=== PATIENT | male | born 1950 | race Caucasian/White ===

== ENCOUNTER 2021-05-19 10:24 | Outpatient (CLI) | payer MEDICARE, SELFPAY ==
--- NOTE | 2021-05-19 10:43 | ECHO_ITS ---
Patient Info Name: Al Wiggins Age: 71 years : 1950 Gender: Male Ht: 71 in Wt: 280 lbs BSA: 2.57 m2 HR: 86 bpm BP: 154 / 80 mmHg Technical Quality: Fair Exam Date: 05/19/2021 10:51 AM Exam Location: [facility] [place] Patient Status: Outpatient Admit Date: 05/19/2021 Staff Ordering Physician: Marta Caraballo NP Foundry Worker: RED Attending Provider: Marta Caraballo NP Referring Physician: Ilya SUERO; Exam Type: CA echo doppler color flow Study Info Indications R55 - Syncope and collapse Complete two-dimensional, color flow and Doppler transthoracic echocardiogram is performed. Summary 1. Complete two-dimensional, color flow and Doppler transthoracic echocardiogram is performed. 2. Left ventricular chamber dimension is normal. 3. Left ventricular systolic function is normal, estimated at 60-65%. 4. There is moderately increased left ventricular wall thickness. 5. The left ventricular diastolic function is grade I diastolic dysfunction. 6. E/e' 9 is minimally elevated. 7. There is mild aortic valve sclerosis. 8. Mild pulmonary hypertension, estimated pulmonary arterial systolic pressure is 40 mmHg. Left Ventricle E/e' 9 is minimally elevated. Left ventricular chamber dimension is normal. Left ventricular systolic function is normal, estimated at 60-65%. There is moderately increased left ventricular wall thickness. The left ventricular diastolic function is grade I diastolic dysfunction. Right Ventricle Right ventricular chamber dimension is normal. Right ventricular systolic function is normal. Left Atria Left atrial chamber dimension is normal. Right Atria Right atrial chamber dimension is normal. Aortic Valve The aortic valve is trileaflet. There is mild aortic valve sclerosis. There is no aortic valve stenosis. There is no aortic valve regurgitation. Pulmonic Valve There is no pulmonic regurgitation. Mitral Valve There is no mitral valve stenosis. There is no mitral valve regurgitation. Tricuspid Valve There is no tricuspid valve regurgitation. Mild pulmonary hypertension, estimated pulmonary arterial systolic pressure is 40 mmHg. Pericardium/Pleural There is no pericardial effusion. Inferior Vena Cava Normal inferior vena cava with >50% collapse upon inspiration consistent with normal right atrial pressure, 5 mmHg. Aorta The aortic root size at the sinus of Valsalva is normal. Left Ventricular Outflow Tract Name Value Normal LVOT 2D LVOT Diameter 2.3 cm LVOT Doppler LVOT Peak Gradient 7 mmHg LVOT Mean Gradient 3 mmHg LVOT VTI 25 cm LVOT VTI/AV VTI Ratio 1.0 LVOT Stroke Volume 100 ml LVOT CO 20.3 l/min LVOT CI 7.9 l/min/m2 Pulmonic Valve Name Value Normal
--- NOTE | 2021-05-19 10:44 | ECG_ITS ---
Measurements Intervals [place] Rate: 72 P: 43 MN: 166 QRS: -17 QRSD: 114 T: 33 QT: 393 QTc: 432 Interpretive Statements SINUS RHYTHM INCOMPLETE RIGHT BUNDLE BRANCH BLOCK BORDERLINE ECG Electronically Signed On 05-19-2021 12:04:10 CDT by Mac Caputo D.O.
== END 2021-05-19 10:25 | disposition home or self-care (01) ==
LOC: ANHCARD 10:27
PROVIDERS: PCP Nurse Practitioner Family; Visit Provider Nurse Practitioner Family
DX: R55 Syncope and collapse (principal); I70.0 Atherosclerosis of aorta; I27.20 Pulmonary hypertension, unspecified; I45.10 Unspecified right bundle-branch block
CPT/HCPCS: 93005; 93306

== ENCOUNTER 2021-05-26 12:47 | Outpatient (CLI) | payer MEDICARE, SELFPAY ==
--- NOTE | ~2021-05-26 | US_ITS ---
EXAMINATION: US carotid duplex BI DATE: 05/26/2021 13:32 INDICATION: Syncope TECHNIQUE: Grayscale, color Doppler, and pulsed Doppler images of the cervical carotid arteries were obtained. The degree of vessel stenosis is placed in one of the following categories: normal, <50%, 5 0-69%, >=70% but less than near-occlusion, near-occlusion, or total occlusion. Note that percent sten osis relative to normal distal artery lumen diameter is indirectly measured from velocity measurement s as described by Lorenzo, et al. Radiology 2003; 229:340-346. COMPARISON: None. FINDINGS: RIGHT: The right common carotid artery (CCA) peak systolic velocity (PSV) is 131 cm/s. The right internal ca rotid artery (ICA) PSV is 77 cm/s. The right ICA end-diastolic velocity (EDV) is 27 cm/s. The right I CA/CCA PSV ratio is 0.6. Grayscale and color Doppler images yield an estimate of <50% diameter reduct ion from plaque in the ICA. The external carotid artery (ECA) PSV is 155 cm/s. There is antegrade mirella w in the right vertebral artery. Incidentally noted is a 1.5 cm wider than tall almost entirely cysti c nodule with smooth margins and with small echogenic focus with posterior comet tail artifact (TI-RA DS 1, benign, no FNA recommended). LEFT: The left CCA PSV is 133 cm/s. The left ICA PSV is 61 cm/s. The left ICA EDV is 24 cm/s. The left ICA/ CCA PSV ratio is 0.5. Grayscale and color Doppler images yield an estimate of <50% diameter reduction from plaque in the ICA. The ECA PSV is 184 cm/s. There is antegrade flow in the left vertebral arter y. IMPRESSION: 1. <50% stenosis in the right internal carotid artery. 2. <50% stenosis in the left internal carotid artery. Reviewed, dictated and finalized at location A.
== END 2021-05-26 12:48 | disposition home or self-care (01) ==
LOC: ANHIMG 12:49
PROVIDERS: PCP Nurse Practitioner Family; Visit Provider Nurse Practitioner Family
DX: I65.23 Occlusion and stenosis of bilateral carotid arteries (principal); R55 Syncope and collapse
CPT/HCPCS: 93880

== ENCOUNTER 2021-06-01 06:37 | Day surgery (SDC) | payer MEDICARE, SELFPAY ==
[2021-05-19 12:28] VITALS: BMI 39.0
--- NOTE | 2021-06-01 07:17 | PM.HPGS ---
History of Present Illness History of Present Illness Consent: Risks, benefits, and alternatives have been discussed and questions answered. Patient agrees to proceed with procedure. Chief complaint: neoplasm screening Narrative: Al Wiggins is a 71 year old male referred for colon cancer screening.His mother had colon cancer. Review of Systems Review of Systems: All systems reviewed & are unremarkable except as noted in HPI and below PMFSH Past Medical History Medical History Arthritis Cataract beginning Environmental allergies Essential (primary) hypertension GERD (gastroesophageal reflux disease) Hyperlipidemia Sleep apnea Surgical History Surgical History History of foot surgery Right foot fusion surgery 08/02/2018 Hx of colonoscopy no polyps Family History Family History Mother Hypertension Family history of osteoarthritis Family history of Parkinson's disease Carcinoma of colon Family history of arthritis Father Family history of kidney disease Social History Social History Smoking status: Never smoker Second hand tobacco smoke exposure: No Alcohol intake: never Substance use: never Substance use type: does not use Living arrangements: with family Gender identity (if verbalized by the patient): Male Spiritual care concerns: No Meds Home Medications and Allergies Home Medications Medication Instructions Recorded Confirmed Type aspirin 81 mg tablet,delayed 81 mg PO DAILY 10/20/19 06/01/21 History release cholecalciferol (vitamin D3) 25 1,000 unit PO DAILY 10/20/19 06/01/21 History mcg (1,000 unit) capsule guaifenesin 600 mg tablet, 600 mg PO DAILY 04/20/20 06/01/21 History extended release 12 hr loratadine 5 mg-pseudoephedrine ER 1 tablet PO DAILY 04/20/20 06/01/21 History 120 mg tablet,extended release,12hr atorvastatin 10 mg tablet 10 mg PO DAILY #90 tablet 04/26/21 06/01/21 Rx omega-3s 350 er-kbz-ual-other 1 cap PO BID cap 04/26/21 06/01/21 History [id number] oil 600 mg capsule lisinopril 30 mg tablet 30 mg PO DAILY #90 tablet 05/12/21 06/01/21 Rx Allergies Allergy/AdvReac Type Severity Reaction Status Date / Time No Known Allergies Allergy Verified 06/01/21 08:54 Exam Resp: Auscultation: clear to auscultation bilaterally Cardio: Rate: regular rate Rhythm: regular rhythm GI: GI Palp: Yes Soft to palpation and No Tenderness to palpation present (GI) Assessment and Plan Assessment and plan (1) Colon cancer screening: Code(s): Z12.11 - Encounter for screening for malignant neoplasm of colon Status: Acute Assessment and Plan: Colonoscopy with possible biopsy or polypectomy or cautery or injection of substances.
[2021-06-01 08:56] VITALS: BP 168/82; PULSE 82; RESP 18; TEMP 36.3; O2SAT 94; BMI 38.8
[2021-06-01] MEDS: LACTATED RINGERS 1,000 ML 150 ML IV CONT (09:08)
--- NOTE | 2021-06-01 09:16 | WPDANESEPPF ---
Anes - Initial Pre Proc Eval Procedure: Operation Date: 06/01/21 09:30 Proposed Procedures p Screening Colonoscopy - Pradip Patterson MD Date/Time: 06/01/21 09:16 Surgeon: Pradip Patterson MD Pre Op Diagnosis: neoplasm screening Patient Data Age: 71 Gender: M Height: 1.8 m Weight: 126.3 kg Last Vital Signs Temp 36.3 C L 06/01/21 08:56 Pulse 82 06/01/21 08:56 Resp 18 06/01/21 08:56 BP 168/82 H 06/01/21 08:56 Pulse Ox 94 06/01/21 08:56 Allergies Allergy/AdvReac Type Severity Reaction Status Date / Time No Known Allergies Allergy Verified 06/01/21 08:54 Home Medications Medication Instructions Recorded Confirmed Type aspirin 81 mg tablet,delayed 81 mg PO DAILY 10/20/19 06/01/21 History release cholecalciferol (vitamin D3) 25 1,000 unit PO DAILY 10/20/19 06/01/21 History mcg (1,000 unit) capsule guaifenesin 600 mg tablet, 600 mg PO DAILY 04/20/20 06/01/21 History extended release 12 hr loratadine 5 mg-pseudoephedrine ER 1 tablet PO DAILY 04/20/20 06/01/21 History 120 mg tablet,extended release,12hr atorvastatin 10 mg tablet 10 mg PO DAILY #90 tablet 04/26/21 06/01/21 Rx omega-3s 350 cr-hml-uen-other 1 cap PO BID cap 04/26/21 06/01/21 History [id number] oil 600 mg capsule lisinopril 30 mg tablet 30 mg PO DAILY #90 tablet 05/12/21 06/01/21 Rx Patient hx anesthesia problems: none Family hx anesthesia problems: none PMFSH Past Medical History Medical History Arthritis Cataract beginning Environmental allergies Essential (primary) hypertension GERD (gastroesophageal reflux disease) Hyperlipidemia Sleep apnea Surgical History Surgical History History of foot surgery Right foot fusion surgery 08/02/2018 Hx of colonoscopy no polyps Family History Family History Mother Hypertension Family history of osteoarthritis Family history of Parkinson's disease Carcinoma of colon Family history of arthritis Father Family history of kidney disease Social History Social History Smoking status: Never smoker Second hand tobacco smoke exposure: No Alcohol intake: never Substance use: never Substance use type: does not use Living arrangements: with family Gender identity (if verbalized by the patient): Male Spiritual care concerns: No Anes - Eval Final PreProcedure Day of Procedure 06/01/21 09:16 Patient weight: obese Heart: regular rate and rhythm Lungs: clear to auscultation Airway: Mallampati scale class II Neurological: alert and oriented Last oral intake: >/= 8 hours ASA classification: III Emergent: no Anesthetic plan: proceed Anesthesia type and monitoring: general GIVS and standard monitoring Informed Consent: The patient's anesthetic plan and its attendant risks and benefits were discussed with the patient/family/POA. Questions were solicited and answers provided to the satisfaction of the patient/family/POA.
[2021-06-01 09:51] VITALS: BP 113/70; PULSE 75; O2SAT 95
[2021-06-01 10:01] VITALS: BP 129/66; PULSE 72; O2SAT 96
[2021-06-01 10:11] VITALS: BP 134/71; PULSE 65; O2SAT 97
== END 2021-06-01 10:27 | disposition home or self-care (01) ==
PROVIDERS: PCP Nurse Practitioner Family; Visit Provider Internal Medicine Gastroenterology
PROC: 0DJD8ZZ Inspection of Lower Intestinal Tract, Via Natural or Artificial Opening Endoscopic (ICD-10-PCS; CPT 45378; principal; 2021-06-01 09:30)
DX: Z12.11 Encounter for screening for malignant neoplasm of colon (principal); K64.8 Other hemorrhoids; K57.30 Diverticulosis of large intestine without perforation or abscess without bleeding; Z80.0 Family history of malignant neoplasm of digestive organs; E78.5 Hyperlipidemia, unspecified; K21.9 Gastro-esophageal reflux disease without esophagitis; H26.9 Unspecified cataract; G47.30 Sleep apnea, unspecified; Z79.82 Long term (current) use of aspirin; E66.9 Obesity, unspecified; Z68.38 Body mass index [BMI] 38.0-38.9, adult
CPT/HCPCS: G0105; J2704; J7120

== ENCOUNTER 2022-03-15 08:42 | Emergency (ER) | payer MEDICARE, SELFPAY ==
[2022-03-15] VITALS (42 sets, daily range): BP systolic 97–129; BP diastolic 58–79; PULSE 55–75; RESP 9–23; TEMP 36.3; O2SAT 88–100
--- NOTE | 2022-03-15 08:52 | ECG_ITS ---
Measurements Intervals [place] Rate: 59 P: 24 TN: 186 QRS: -9 QRSD: 117 T: 22 QT: 433 QTc: 431 Interpretive Statements SINUS BRADYCARDIA INCOMPLETE RIGHT BUNDLE BRANCH BLOCK BORDERLINE ECG Electronically Signed On 03-15-2022 9:36:03 CDT by Mac Caputo D.O.
[2022-03-15 09:00] LABS: Basophils Percent Auto 0.7 % (0.2-1.2); Eosinophils Absolute Auto 0.1 K/mm3 (0-0.3); Hematocrit 45.9 % (42.0-52.0); Hemoglobin 15.4 g/dL (14.0-18.0); Immature Granulocyte Absolute 0.03 K/mm3 (0.00-0.031); Immature Granulocyte Percent A 0.7 % (0-0.5); Lymphocytes Absolute Auto 1.35 K/mm3 (0.9-3.2); Lymphocytes Percent Auto 33.3 % (18.3-44.2); Mean Corpuscular HGB Conc 33.6 g/dl (32-36); Mean Corpuscular Hemoglobin 30.1 pg (26-34); Mean Corpuscular Volume 89.8 fl (80-100); Mean Platelet Volume 9.6 fl (7.4-10.4); Monocytes Absolute Auto 0.7 K/mm3 (0.1-0.6); Monocytes Percent Auto 16.5 % (2.6-8.5); Neutrophils Absolute Auto 1.9 K/mm3 (1.3-6.7); Neutrophils Percent Auto 46.8 % (45.5-73.1); Platelet Count Result 227 k/mm3 (150-375); Red Blood Count 5.11 M/mm3 (4.6-6.20); Red Cell Distribution Width 12.7 % (11.5-14.5); White Blood Count 4.1 K/mm3 (4.5-10.0)
[2022-03-15 09:11] LABS: Alanine Aminotransferase 28 U/L (6-50); Alkaline Phosphatase 82 U/L (38-126); Anion Gap 7 mmol/L (8-16); Aspartate Amino Transferase 35 U/L (17-59); Bilirubin,Total 0.4 mg/dL (0.2-1.3); Blood Urea Nitrogen 19 mg/dL (9-20); Calcium 8.6 mg/dL (8.4-10.2); Carbon Dioxide 25 mmol/L (22-30); Chloride 102 mmol/L (98-107); Estimated CRCL calculation 73 ml/min; Estimated Glomerular Filt Rate > 60; Glucose 104 mg/dL (65-110); Potassium 4.7 mmol/L (3.4-5.0); Sodium 134 mmol/L (137-145)
[2022-03-15 10:17] LABS: Appearance Urine Clear (Clear); Bilirubin Urine Negative (Negative); Blood Urine Negative (Negative); Color Urine Yellow (Yellow); Glucose Urine UA Negative (Negative); Ketones Urine Negative (Negative); Leukocyte Esterase Ur Negative LEU/UL (Negative); Nitrate Urine Negative (Negative); Protein Urine Negative (Negative); Specific Grav Ur >= 1.030 (1.001-1.035); Urobilinogen Urine 0.2 mg/dL (<2.0); pH Urine 5.5 (5.0-9.0)
[2022-03-15] MEDS: SODIUM CHLORIDE 0.9% IV 1,000 ML 999 ML IV CONT (10:19)
[2022-03-15 10:30] LABS: Add Urine Microscopic? NO
--- NOTE | 2022-03-15 13:13 | ED.DIZZY ---
HPI - Dizziness General Chief Complaint: Dizziness Stated Complaint: dizziness Time Seen by Provider: 03/15/22 08:55 Source: patient and family Mode of arrival: ambulatory Limitations: no limitations History of Present Illness HPI Narrative: 71-year-old with a history of hypertension, hyperlipidemia, arthritis here with complaints of dizziness since this morning. Patient states that he woke up and use the restroom felt extremely dizzy he sat back on the bed checked his blood pressure and was found to be 82/42. After few minutes he again checked his pressure which was normal. Patient states he called his nurse practitioner who advised him to go to the ER. He presently denies any chest pain. No history of nausea, vomiting or abdominal pain. Patient states that he had a similar episode few weeks ago and at that time his doctor discontinued hydrochlorothiazide. MD elicited complaint: dizziness and lightheadedness Onset (ago): hour(s) (1) Timing: sudden onset Severity: moderate Description: lightheadedness Exacerbating factors: nothing Relieving factors: nothing Associated symptoms: denies other symptoms Related Data Home Medications Medication Instructions Recorded Confirmed aspirin 81 mg tablet,delayed 81 mg PO DAILY 10/20/19 10/25/21 release (Adult Low Dose Aspirin) cholecalciferol (vitamin D3) 25 1,000 unit PO DAILY 10/20/19 10/25/21 mcg (1,000 unit) capsule guaifenesin 600 mg tablet, 600 mg PO DAILY 04/20/20 10/25/21 extended release 12 hr (Mucinex) loratadine 5 mg-pseudoephedrine ER 1 tablet PO DAILY 04/20/20 10/25/21 120 mg tablet,extended release,12hr (Claritin-D 12 Hour) omega-3s 350 ze-gqe-pmt-other 1 cap PO BID 04/26/21 10/25/21 [id number] oil 600 mg capsule (Fish Oil) docusate sodium 100 mg capsule 100 mg PO DAILY 10/25/21 10/25/21 (Colace) Allergies Allergy/AdvReac Type Severity Reaction Status Date / Time No Known Allergies Allergy Verified 10/25/21 10:02 Review of Systems Review of Systems: All systems reviewed & are unremarkable except as noted in HPI and below Constitutional: Constitutional: Reports no additional constitutional complaints Eyes: Eyes: Reports no additional eye complaints ENT: Reports system reviewed and no additional complaints, except as documented Cardiovascular: Cardiovascular: Reports no additional cardiovascular complaints Respiratory: Respiratory: Reports no additional respiratory complaints Gastrointestinal: Gastrointestinal: Reports no additional gastrointestinal complaints Musculoskeletal: Musculoskeletal: Reports no additional musculoskeletal complaints Neurologic: Reports system reviewed and no additional complaints, except as documented Endocrine: Endocrine: Reports no additional endocrine complaints Hematologic/Lymphatic: Hematologic/Lymphatic: Reports no additional hematologic/lymphatic complaints PMFSH Past Medical History Medical History Arthritis Cataract beginning Environmental allergies Essential (primary) hypertension GERD (gastroesophageal reflux disease) Hyperlipidemia Sleep apnea Surgical History Surgical History History of foot surgery Right foot fusion surgery 08/02/2018 Hx of colonoscopy no polyps Family History Family History Mother Hypertension Family history of osteoarthritis Family history of Parkinson's disease Carcinoma of colon Family history of arthritis Father Family history of kidney disease Social History Social History Smoking status: Never smoker Second hand tobacco smoke exposure: No Alcohol intake: never Substance use: never Substance use type: does not use Gender identity (if verbalized by the patient): Male Spiritual care concerns: No Exam Narrative:
== END 2022-03-15 13:48 | disposition home or self-care (01) ==
PROVIDERS: Emergency Provider Family Medicine; PCP Nurse Practitioner Family
DX: I95.1 Orthostatic hypotension (principal); E78.5 Hyperlipidemia, unspecified; I10 Essential (primary) hypertension
CPT/HCPCS: 36415; 80053; 81003; 85025; 93005; 96360; 99283; J7030

== ENCOUNTER 2022-03-28 11:58 | Emergency (ER) | payer MEDICARE, SELFPAY ==
--- NOTE | ~2022-03-28 | XR_ITS ---
XR chest 2V 03/28/2022 13:24 Indication: Cough Procedure: 2 view chest Comparison: No prior studies for comparison. Findings: There is a nodular density in the left lower thorax. Heart size normal. There is atheroscle rosis and ectasia of the aorta. No significant effusion, edema or pneumothorax. There is advanced ost eoarthritis of the right glenohumeral joint with adjacent loose bodies. Impression: 1: Nodular radiodensity left lower thorax which may represent superimposed confluence of structures, although a parenchymal nodule is not excluded. Recommend correlation with CT chest. Reviewed, dictated and finalized at location B. Impression: 1: Nodular radiodensity left lower thorax which may represent superimposed conf luence of structures, although a parenchymal nodule is not excluded. Recommend correlation with CT chest.
--- NOTE | ~2022-03-28 | CT_ITS ---
EXAMINATION: CT abdomen pelvis wo con DATE: 03/28/2022 13:13 INDICATION: Abdominal cramping, diarrhea TECHNIQUE: Computed tomography (CT) of the abdomen and pelvis was performed without intravenous contr ast. Automated exposure control and iterative reconstruction technique were employed. Exam dose: 145 2.25 mGy-cm total exam DLP. COMPARISON: None. FINDINGS: Normal heart size. No pericardial or pleural effusion. Coronary artery calcification. 4.5 cm hepatic dome cyst. The liver is otherwise unremarkable. Normal splenic size. The gallbladder is present. No bile duct or pancreatic duct dilatation. No pancr eatic mass lesion or calcification. Normal morphology of the adrenal glands. 8 cm and 2.2 cm right renal cyst. 2.8 cm left renal cyst. Possible small left renal cortical exophyti c cyst. Examination is limited due to lack of iodinated intravenous contrast material. No urinary tract calculus or hydroureteronephrosis is detected. The urinary bladder is unremarkable. Bilateral fat-containing inguinal hernias, small on the right, larger on the left. Moderate prostate enlargement. Normal appendix. There are multiple diverticula of the sigmoid colon; no CT evidence of diverticulitis. No bowel obstr uction or intraperitoneal free air. There is atherosclerotic calcification of the abdominal aorta and at the origin the celiac and partic ularly superior mesenteric arteries in addition to left renal artery. No abdominal aortic aneurysm. N o intraperitoneal or retroperitoneal or pelvic mass lesion or adenopathy or ascites is noted. Small fat-containing umbilical hernia. 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 Multilevel degenerative disc disease of the lumbar and lumbosacral spine. Degenerative change at the hip joints. No suspicious osteolytic or osteoblast ic lesions are identified. IMPRESSION: Hepatic and bilateral renal cysts Normal appendix Diverticulosis of the colon; no CT evidence of diverticulitis Reviewed, dictated and finalized at Location A. Reviewed, dictated and finalized at location A.
[2022-03-28 12:12] VITALS: BP 130/70; PULSE 80; RESP 16; TEMP 36.2; O2SAT 98
--- NOTE | 2022-03-28 12:31 | ED.NAVMDI ---
HPI - Nausea/Vomiting/Diarrhea General Chief complaint: Nausea/Vomiting/Diarrhea Stated complaint: diarrhea x 1-2 weeks Time Seen by Provider: 03/28/22 12:29 History of Present Illness HPI Narrative: The patient is a 71-year-old male with a history of hypertension, hyperlipidemia, presenting to the emergency department for evaluation abdominal cramping, diarrhea, cough. Patient states that he has had profuse watery diarrhea over the past week, worsening today. Patient reports 3 episodes of explosive diarrhea without mucus or blood present. Patient reports mild abdominal cramping without radiation to the back or upper abdomen. He denies fever, chills, nausea or vomiting. Patient states that he was exposed to COVID 2 weeks ago with a granddaughter who tested positive. Patient states he initially had cough cold symptoms with congestion, rhinorrhea, sore throat, and cough. Patient has not had any confirmatory testing. He states that his symptoms began greater than 10 days ago. Patient states he mostly feels well from that standpoint, reports he has a lingering cough but denies any chest pain or shortness of breath. He denies leg swelling or calf pain. He denies any hemoptysis. Patient denies any focal weakness or numbness. He has been able to tolerate oral intake. He denies recent travel or recent food indiscretions. No current or recent antibiotic use. Patient denies history of colitis or diverticulitis. He denies dysuria or hematuria. Related Data Home Medications Medication Instructions Recorded Confirmed aspirin 81 mg tablet,delayed 81 mg PO DAILY 10/20/19 10/25/21 release (Adult Low Dose Aspirin) cholecalciferol (vitamin D3) 25 1,000 unit PO DAILY 10/20/19 10/25/21 mcg (1,000 unit) capsule guaifenesin 600 mg tablet, 600 mg PO DAILY 04/20/20 10/25/21 extended release 12 hr (Mucinex) loratadine 5 mg-pseudoephedrine ER 1 tablet PO DAILY 04/20/20 10/25/21 120 mg tablet,extended release,12hr (Claritin-D 12 Hour) omega-3s 350 ap-szq-qot-other 1 cap PO BID 04/26/21 10/25/21 [id number] oil 600 mg capsule (Fish Oil) docusate sodium 100 mg capsule 100 mg PO DAILY 10/25/21 10/25/21 (Colace) Allergies Allergy/AdvReac Type Severity Reaction Status Date / Time No Known Allergies Allergy Verified 10/25/21 10:02 Review of Systems Review of Systems: CONSTITUTIONAL: Denies fever, chills, or sweats. EYES: Denies visual changes, redness, or discharge. ENT: Denies current rhinorrhea, congestion, sore throat, or otalgia. CARDIOVASCULAR: Denies chest pain, palpitations, or edema. RESPIRATORY: Reports cough without dyspnea GASTROINTESTINAL: Reports abdominal cramping and diarrhea, denies nausea or vomiting GENITOURINARY: Denies dysuria or hematuria. SKIN: Denies rash or itching. MUSCULOSKELETAL: Denies back pain, joint pain, or myalgia. NEUROLOGIC: Denies headache, numbness, or weakness. P PMFSH Past Medical History Medical History Arthritis Cataract beginning Environmental allergies Essential (primary) hypertension GERD (gastroesophageal reflux disease) Hyperlipidemia Sleep apnea Surgical History Surgical History History of foot surgery Right foot fusion surgery 08/02/2018 Hx of colonoscopy no polyps Family History Family History Mother Hypertension Family history of osteoarthritis Family history of Parkinson's disease Carcinoma of colon Family history of arthritis Father Family history of kidney disease Social History Social History Smoking status: Never smoker Second hand tobacco smoke exposure: No Alcohol intake: never Substance use: never Substance use type: does not use Gender identity (if verbalized by the patient): Male Spiritual care concerns: No
[2022-03-28 13:05] LABS: Basophils Absolute Auto 0.1 K/mm3 (0.0-0.1); Basophils Percent Auto 1.1 % (0.2-1.2); Eosinophils Absolute Auto 0.1 K/mm3 (0-0.3); Eosinophils Percent Auto 1.9 % (0-4.4); Hematocrit 44.1 % (42.0-52.0); Hemoglobin 14.6 g/dL (14.0-18.0); Immature Granulocyte Absolute 0.05 K/mm3 (0.00-0.031); Immature Granulocyte Percent A 0.7 % (0-0.5); Lymphocytes Absolute Auto 1.82 K/mm3 (0.9-3.2); Lymphocytes Percent Auto 24.5 % (18.3-44.2); Mean Corpuscular HGB Conc 33.1 g/dl (32-36); Mean Corpuscular Hemoglobin 29.6 pg (26-34); Mean Corpuscular Volume 89.3 fl (80-100); Monocytes Absolute Auto 0.9 K/mm3 (0.1-0.6); Monocytes Percent Auto 11.7 % (2.6-8.5); Neutrophils Absolute Auto 4.5 K/mm3 (1.3-6.7); Neutrophils Percent Auto 60.1 % (45.5-73.1); Platelet Count Result 312 k/mm3 (150-375); Red Blood Count 4.94 M/mm3 (4.6-6.20); Red Cell Distribution Width 13.5 % (11.5-14.5); White Blood Count 7.4 K/mm3 (4.5-10.0)
--- NOTE | 2022-03-28 13:10 | PC.NURSE ---
Patient in radiology
[2022-03-28 13:16] LABS: Alanine Aminotransferase 28 U/L (6-50); Alkaline Phosphatase 87 U/L (38-126); Anion Gap 5 mmol/L (8-16); Aspartate Amino Transferase 31 U/L (17-59); Bilirubin,Total 0.4 mg/dL (0.2-1.3); Blood Urea Nitrogen 18 mg/dL (9-20); Calcium 8.9 mg/dL (8.4-10.2); Carbon Dioxide 24 mmol/L (22-30); Chloride 109 mmol/L (98-107); Estimated CRCL calculation 73 ml/min; Estimated Glomerular Filt Rate > 60; Glucose 100 mg/dL (65-110); Lipase 58 U/L (23-300); Potassium 4.6 mmol/L (3.4-5.0); Sodium 138 mmol/L (137-145)
--- NOTE | 2022-03-28 13:19 | PC.NURSE ---
Patient to radiology again
[2022-03-28 13:28] VITALS: BP 108/64; BP 115/66; BP 118/67; PULSE 66; PULSE 75; PULSE 78
[2022-03-28] MEDS: SODIUM CHLORIDE 0.9% IV 1,000 ML 999 ML IV CONT (13:31)
[2022-03-28 14:29] LABS: SARS-CoV-2 RNA PCR Positive
== END 2022-03-28 14:53 | disposition home or self-care (01) ==
PROVIDERS: Emergency Medicine; Emergency Provider Emergency Medicine; PCP Family Medicine
DX: U07.1 COVID-19 (principal); R19.7 Diarrhea, unspecified; I10 Essential (primary) hypertension; E78.5 Hyperlipidemia, unspecified; K21.9 Gastro-esophageal reflux disease without esophagitis; M19.90 Unspecified osteoarthritis, unspecified site; G47.30 Sleep apnea, unspecified; Z79.82 Long term (current) use of aspirin
CPT/HCPCS: 36415; 71046; 74176; 80053; 83690; 85025; 96360; 99285; C9803; J7030; U0003; U0005

== ENCOUNTER 2022-05-14 17:42 | Emergency (ER) | payer MEDICARE, SELFPAY ==
--- NOTE | 2022-05-14 17:43 | ED.WOUNDLAC ---
HPI - Wound/Laceration General Chief Complaint: Wound/Laceration Stated Complaint: Right foot puncture wound Time Seen by Provider: 05/14/22 17:43 Source: patient Mode of arrival: ambulatory Limitations: no limitations History of Present Illness HPI narrative: Mr. Wiggins is a 72-year-old male patient presenting to the clinic today with complaints of a puncture wound to his right foot. He reports that he was out in the garden today in slippers and stepped on a omar nail. States his tetanus is up-to-date. Has right foot redness and swelling. Denies any fever or chills. Related Data Home Medications Medication Instructions Recorded Confirmed aspirin 81 mg tablet,delayed 81 mg PO DAILY 10/20/19 05/14/22 release (Adult Low Dose Aspirin) cholecalciferol (vitamin D3) 25 1,000 unit PO DAILY 10/20/19 05/14/22 mcg (1,000 unit) capsule omega-3s 350 lx-ana-xya-other 1 cap PO BID 04/26/21 05/14/22 [id number] oil 600 mg capsule (Fish Oil) Allergies Allergy/AdvReac Type Severity Reaction Status Date / Time No Known Allergies Allergy Verified 05/14/22 17:45 Review of Systems Review of Systems: Pertinent positives per HPI. Patient denies any fever, chills, rash, headache, visual changes, dizziness, cough, runny nose, sore throat, shortness of breath, chest pain, palpitations, nausea, vomiting, diarrhea, constipation, abdominal pain, or any urinary issues. PMFSH Past Medical History Medical History Arthritis Cataract beginning Environmental allergies Essential (primary) hypertension GERD (gastroesophageal reflux disease) Hyperlipidemia Sleep apnea Surgical History Surgical History History of foot surgery Right foot fusion surgery 08/02/2018 Hx of colonoscopy no polyps Family History Family History Mother Hypertension Family history of osteoarthritis Family history of Parkinson's disease Carcinoma of colon Family history of arthritis Father Family history of kidney disease Social History Social History Smoking status: Never smoker Second hand tobacco smoke exposure: No Alcohol intake: never Substance use: never Substance use type: does not use Gender identity (if verbalized by the patient): Male Spiritual care concerns: No Comments At the time of my signature, I reviewed and agree with the nursing past medical, surgical, social, and family history. There is no relevant family history pertinent to the patient complaint. Exam Narrative: General: Well-developed, obese, in no apparent distress Head: Normocephalic, atraumatic. Cardio: Regular rate and rhythm, s1 and s2 normal, no murmur appreciated. Resp: Clear to auscultation bilaterally, no rhonchi, rales, wheezing or rubs. Integumentary: [employer], warm, and dry, small puncture wound to the right midfoot, localized tenderness to palpation over the puncture wound site, moderate redness, erythremia, and swelling to the right foot when compared to the left foot, no discharge coming from the wound, no streaking noted, no rashes. Course Course Emergency Course: Portions of this record may have been created with voice recognition software. Level of Care: Express Care Visit Vital Signs Vital signs: Vital signs reviewed MDM - Wound/Laceration MDM Narrative Medical decision making narrative: At the time of visit patient was resting comfortably on the exam table. He has a small puncture wound to the right distal midfoot. He has erythremia, redness, and swelling to the right when compared to the left foot. We will give him a course of cephalexin and his tetanus shot is up-to-date per our records. Supportive measures were discussed with the patient he voiced understanding of dischar
[2022-05-14 17:52] VITALS: BP 163/76; PULSE 85; RESP 16; TEMP 36.8; O2SAT 100
== END 2022-05-14 18:08 | disposition home or self-care (01) ==
LOC: EXPCOLL 17:46
PROVIDERS: Emergency Provider Nurse Practitioner Family; PCP Nurse Practitioner Family
DX: S91.331A Puncture wound without foreign body, right foot, initial encounter (principal); L08.9 Local infection of the skin and subcutaneous tissue, unspecified; W45.0XXA Nail entering through skin, initial encounter; M19.90 Unspecified osteoarthritis, unspecified site; I10 Essential (primary) hypertension; K21.9 Gastro-esophageal reflux disease without esophagitis; E78.5 Hyperlipidemia, unspecified; G47.30 Sleep apnea, unspecified; Z79.82 Long term (current) use of aspirin
CPT/HCPCS: 99212; 99213; G0463

== ENCOUNTER 2022-10-26 09:55 | Outpatient (CLI) | payer MEDICARE, SELFPAY ==
[2022-10-26 11:05] LABS: Kit Draw Collected
== END 2022-10-26 09:56 | disposition home or self-care (01) ==
LOC: ANHGOSHLAB 09:58
PROVIDERS: PCP Family Medicine; Visit Provider Nurse Practitioner Family
DX: E78.5 Hyperlipidemia, unspecified (principal); I10 Essential (primary) hypertension
CPT/HCPCS: 36415

== ENCOUNTER 2022-11-03 15:08 | Outpatient (CLI) | payer MEDICARE, SELFPAY ==
[2022-11-03 15:54] LABS: Anion Gap 5 mmol/L (8-16); Blood Urea Nitrogen 21 mg/dL (9-20); Calcium 8.9 mg/dL (8.4-10.2); Carbon Dioxide 28 mmol/L (22-30); Chloride 101 mmol/L (98-107); Estimated Glomerular Filt Rate > 60; Glucose 90 mg/dL (65-110); Potassium 4.6 mmol/L (3.4-5.0); Sodium 134 mmol/L (137-145)
== END 2022-11-03 15:09 | disposition home or self-care (01) ==
PROVIDERS: PCP Family Medicine; Visit Provider Nurse Practitioner Family
DX: E87.5 Hyperkalemia (principal)
CPT/HCPCS: 36415; 80048

== ENCOUNTER 2023-05-15 10:42 | Outpatient (CLI) | payer MEDICARE, SELFPAY ==
[2023-05-15 19:17] LABS: Basophils Absolute Auto 0.1 K/mm3 (0.0-0.1); Eosinophils Absolute Auto 0.2 K/mm3 (0-0.3); Eosinophils Percent Auto 2.4 % (0-4.4); Hematocrit 48.6 % (42.0-52.0); Hemoglobin 16.2 g/dL (14.0-18.0); Immature Granulocyte Absolute 0.03 K/mm3 (0.00-0.031); Immature Granulocyte Percent A 0.5 % (0-0.5); Lymphocytes Absolute Auto 1.58 K/mm3 (0.9-3.2); Lymphocytes Percent Auto 25.1 % (18.3-44.2); Mean Corpuscular HGB Conc 33.3 g/dl (32-36); Mean Corpuscular Hemoglobin 30.3 pg (26-34); Mean Platelet Volume 10.2 fl (7.4-10.4); Monocytes Absolute Auto 0.6 K/mm3 (0.1-0.6); Monocytes Percent Auto 9.8 % (2.6-8.5); Neutrophils Absolute Auto 3.9 K/mm3 (1.3-6.7); Neutrophils Percent Auto 61.2 % (45.5-73.1); Platelet Count Result 279 k/mm3 (150-375); Red Blood Count 5.34 M/mm3 (4.6-6.20); Red Cell Distribution Width 12.9 % (11.5-14.5); White Blood Count 6.3 K/mm3 (4.5-10.0)
[2023-05-16 00:38] LABS: Alanine Aminotransferase 24 U/L (6-50); Albumin Level 4.4 g/dL (3.5-5.1); Alkaline Phosphatase 92 U/L (38-126); Anion Gap 9 mmol/L (8-16); Aspartate Amino Transferase 42 U/L (17-59); Bilirubin,Total 0.6 mg/dL (0.2-1.3); Blood Urea Nitrogen 19 mg/dL (9-20); Calcium 9.1 mg/dL (8.4-10.2); Carbon Dioxide 24 mmol/L (22-30); Chloride 104 mmol/L (98-107); Cholesterol 148 mg/dL (0-200); Estimated Glomerular Filt Rate 59; Glucose 96 mg/dL (65-110); HDL Direct 30 mg/dL; Potassium 4.4 mmol/L (3.4-5.0); Sodium 137 mmol/L (137-145); Triglycerides 127 mg/dL (<150)
[2023-05-16 00:49] LABS: LDL Cholesterol Direct 76 mg/dL
[2023-05-19 13:07] LABS: Vitamin D 1,25 (OH)2 Total 40 pg/mL (18-72); Vitamin D2 1,25 (OH)2 <8 pg/mL; Vitamin D3 1,25 (OH)2 40 pg/mL
== END 2023-05-15 10:43 | disposition home or self-care (01) ==
LOC: ANHGOSHLAB 10:45
PROVIDERS: PCP Family Medicine; Visit Provider Nurse Practitioner Family
DX: E55.9 Vitamin D deficiency, unspecified (principal); E78.5 Hyperlipidemia, unspecified; G47.30 Sleep apnea, unspecified; N18.30 Chronic kidney disease, stage 3 unspecified; E87.5 Hyperkalemia
CPT/HCPCS: 36415; 80053; 80061; 82652; 85025

== ENCOUNTER 2023-11-20 10:50 | Outpatient (CLI) | payer MEDICARE, SELFPAY ==
[2023-11-20 14:19] LABS: Alanine Aminotransferase 21 U/L (6-50); Albumin Level 4.4 g/dL (3.5-5.1); Alkaline Phosphatase 99 U/L (38-126); Anion Gap 6 mmol/L (8-16); Aspartate Amino Transferase 47 U/L (17-59); Basophils Absolute Auto 0.1 K/mm3 (0.0-0.1); Basophils Percent Auto 1.5 % (0.2-1.2); Bilirubin,Total 0.7 mg/dL (0.2-1.3); Blood Urea Nitrogen 19 mg/dL (9-20); Calcium 9.6 mg/dL (8.4-10.2); Carbon Dioxide 24 mmol/L (22-30); Chloride 105 mmol/L (98-107); Cholesterol 150 mg/dL (0-200); Eosinophils Absolute Auto 0.2 K/mm3 (0-0.3); Eosinophils Percent Auto 3.6 % (0-4.4); Estimated Glomerular Filt Rate 54; Glucose 109 mg/dL (65-110); HDL Direct 32 mg/dL; Hematocrit 50.5 % (42.0-52.0); Hemoglobin 16.7 g/dL (14.0-18.0); Immature Granulocyte Absolute 0.04 K/mm3 (0.00-0.031); Immature Granulocyte Percent A 0.7 % (0-0.5); Lymphocytes Absolute Auto 1.54 K/mm3 (0.9-3.2); Lymphocytes Percent Auto 28.1 % (18.3-44.2); Mean Corpuscular HGB Conc 33.1 g/dl (32-36); Mean Corpuscular Volume 90.7 fl (80-100); Mean Platelet Volume 10.2 fl (7.4-10.4); Monocytes Absolute Auto 0.6 K/mm3 (0.1-0.6); Monocytes Percent Auto 11.5 % (2.6-8.5); Neutrophils Percent Auto 54.6 % (45.5-73.1); Platelet Count Result 300 k/mm3 (150-375); Potassium 4.8 mmol/L (3.4-5.0); Red Blood Count 5.57 M/mm3 (4.6-6.20); Red Cell Distribution Width 12.9 % (11.5-14.5); Sodium 135 mmol/L (137-145); Triglycerides 98 mg/dL (<150); White Blood Count 5.5 K/mm3 (4.5-10.0)
[2023-11-20 14:31] LABS: LDL Cholesterol Direct 83 mg/dL
[2023-11-23 14:27] LABS: Vitamin D 1,25 (OH)2 Total 30 pg/mL (18-72); Vitamin D2 1,25 (OH)2 <8 pg/mL; Vitamin D3 1,25 (OH)2 30 pg/mL
[2023-11-23 15:02] LABS: PSA, Free 0.91 ng/mL; PSA, Total 6.3 ng/mL (<=4.0); Percent Free Prostate Spec Ag 14 % (>25)
== END 2023-11-20 10:51 | disposition home or self-care (01) ==
PROVIDERS: PCP Family Medicine; Visit Provider Nurse Practitioner Family
DX: Z12.5 Encounter for screening for malignant neoplasm of prostate (principal); E55.9 Vitamin D deficiency, unspecified; I10 Essential (primary) hypertension
CPT/HCPCS: 36415; 80053; 80061; 82652; 84153; 84154; 85025; G0103

== ENCOUNTER 2023-12-25 10:19 | Outpatient (CLI) | payer MEDICARE, SELFPAY ==
[2023-12-25 11:37] LABS: Prothrombin Time 13.2 Seconds (11.1-14.7)
[2023-12-25 11:38] LABS: Partial Thromboplastin Time 33.2 SECONDS (22.3-36.8)
== END 2023-12-25 10:20 | disposition home or self-care (01) ==
LOC: ANHSURGERY 10:23
PROVIDERS: Anesthesiology; PCP Family Medicine; Visit Provider Urology
DX: Z01.818 Encounter for other preprocedural examination (principal); R97.20 Elevated prostate specific antigen [PSA]; N18.30 Chronic kidney disease, stage 3 unspecified
CPT/HCPCS: 36415; 85610; 85730; 87086

== ENCOUNTER 2024-01-01 00:34 | Day surgery (SDC) | payer MEDICARE, SELFPAY ==
[2023-12-21 15:23] VITALS: BMI 39.0
--- NOTE | 2023-12-21 15:44 | PC.NURSE ---
Report to the Outpatient Waiting Room, entrance under the green pavilion located off [facility], at time __6:30AM on date __01/01/24 . Planned Procedure Time: __8:30AM . Time changes happen often and if your time is changed the preop area will call you the afternoon before. - You and your visitor will be asked to self-screen and do not enter if you have any COVID symptoms. - A mask is optional within the hospital at this time. Patients may have clear liquids (water, carbonated beverages, clear teas, apple juice) until 3 hours prior to surgery with a maximum of 20 ounces. - No food from midnight until time of surgery. Take the following medications with a SIP of water the morning of surgery: ___DOXAZOSIN DO NOT STOP ANY OF YOUR OTHER PRESCRIPTION MEDICATIONS PRIOR TO SURGERY ?EXCEPT THE FOLLOWING Medications to discontinue per physician ___HOLD ASPIRIN 7 DAYS PRE-OP PER DR HARDING- LAS DOSE- 01/01/24 HOLD ALL VITAMINS/SUPPLEMENTS 3 DAYS PRE-OP PER ANESTHESIA- LASY DOSE 12/28/23. Please no make-up, nail micronesian, hairspray, perfume, deodorant, or body powder the day of surgery. No jewelry (including any body piercings) or valuables the day of surgery, leave them at home. Please take a shower or bath the night before, or the morning of, surgery with an antibacterial soap. Wear comfortable, loose fitting clothing. - Jewelry must be removed prior to entering the operating room. Rings and piercings that are not removed may be cut off. - The hospital will not accept responsibility for valuables. - Please leave all valuables, including medications, at home the day of surgery. If you are going home after surgery, a licensed patrol driver must drive you home. - NO public transportation without another adult if you receive anesthesia. - We recommend that an adult stay with you for 24 hours following discharge. - We also recommend that you do not drive, make important decision, drink alcoholic beverages, or take any drugs that were not prescribed by your health care provider for at least 24 hours after your discharge time. Follow any additional instructions given to you from your surgeon. If you or anyone in your household have experienced Covid symptoms in the past week, please notify your surgeon or the nurse liaison at the phone number below for possible testing. Telephone instructions given to ____PATIENT and asked if any additional questions and then verbalized understanding. Patient advised to call surgeon office or pre surgery nurse liaison [phone] if any additional questions.
--- NOTE | 2023-12-31 12:57 | WPDANESEPPF ---
Anes - Initial Pre Proc Eval Procedure: Operation Date: 01/01/24 08:30 Proposed Procedures p Trans Rectal Ultrasound Fusion Guided Prostate Biopsy - William Haile MD Date/Time: 12/31/23 12:57 Surgeon: William Haile MD Pre Op Diagnosis: Elev PSA Patient Data Age: 73 Gender: M Height: 1.8 m Weight: 127 kg Allergies Allergy/AdvReac Type Severity Reaction Status Date / Time No Known Allergies Allergy Verified 12/21/23 15:16 Home Medications Medication Instructions Recorded Confirmed Type aspirin 81 mg tablet,delayed 81 mg PO DAILY 10/20/19 12/21/23 History release (Adult Low Dose Aspirin) cholecalciferol (vitamin D3) 25 1,000 unit PO DAILY 10/20/19 12/21/23 History mcg (1,000 unit) capsule omega-3s 350 ld-jgs-uco-other 1 cap PO BID 04/26/21 12/21/23 History [id number] oil 600 mg capsule (Fish Oil) melatonin 10 mg capsule 10 mg PO QHS 10/26/22 12/21/23 History cannabidiol 100 mg/mL oral solution 60 mg PO DAILY 05/15/23 12/21/23 History atorvastatin 10 mg tablet See Rx Instructions .Route 10/17/23 12/21/23 Rx .COMPLEX #90 tabs doxazosin 4 mg tablet 4 mg PO QAM 12/21/23 12/21/23 History lisinopril 10 mg tablet 10 mg PO HS 12/21/23 12/21/23 History Patient hx anesthesia problems: none Family hx anesthesia problems: none Results Review: All pre-operative results and documents have been reviewed as part of the pre-operative evaluation. [facility] Past Medical History Medical History Arthritis Cataract beginning Environmental allergies Essential (primary) hypertension GERD (gastroesophageal reflux disease) Hyperlipidemia Sleep apnea Vitamin D deficiency Surgical History Surgical History History of foot surgery Right foot fusion surgery 08/02/2018 Hx of colonoscopy no polyps Family History Family History Mother Hypertension Family history of osteoarthritis Family history of Parkinson's disease Carcinoma of colon Family history of arthritis Father Family history of kidney disease Social History Social History Social History: Al is . 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 Smoking status: Never smoker Second hand tobacco smoke exposure: No Alcohol intake: current Substance use: never Substance use type: does not use Lack of Transportation: No Lack of Food: Never True Current Housing: I Have Housing Concerned About Future Housing: No Difficulty Paying Gas/Electric Bills: No Difficulty Paying for Meds: No Currently Unemployed: No Education: Master's Degree or Higher Difficulty w/ Childcare or Family Care: No Living arrangements: with family Additional living arrangements comments: Occupation/Education: retired Gender identity (if verbalized by the patient): Male Spiritual care concerns: No Agree to blood products: Yes Anes - Eval Final PreProcedure Day of Procedure 12/31/23 12:57 Patient weight: obese Heart: regular rate and rhythm Lungs: clear to auscultation Airway: Mallampati scale class II Neurological: alert and oriented Last oral intake: >/= 8 hours ASA classification: III Emergent: no Anesthetic plan: proceed Anesthesia type and monitoring: general LMA and standard monitoring Results Review: All pre-operative results and documents have been reviewed as part of the pre-operative evaluation. Informed Consent: The patient's anesthetic plan and its attendant risks and benefits were discussed with the patient/family/POA. Questions were solicited and answers provided to the satisfaction of the patient/family/POA.
[2024-01-01 07:40] VITALS: BP 138/75; PULSE 85; RESP 14; TEMP 36.4; O2SAT 100
[2024-01-01] MEDS: LACTATED RINGERS 1,000 ML 30 ML IV CONT (07:44)
--- NOTE | 2024-01-01 08:27 | PM.IMHP ---
H&P: HPI History of Present Illness Date/Time: 01/01/24 08:27 Chief Complaint: elevated PSA Narrative: 73-year-old male with elevated PSA and abnormal MRI. Patient prevents for uronav us and prostate biopsy Review of Systems Review of Systems: All systems reviewed & are unremarkable except as noted in HPI and below [facility] Past Medical History Medical History Arthritis Cataract beginning Environmental allergies Essential (primary) hypertension GERD (gastroesophageal reflux disease) Hyperlipidemia Sleep apnea Vitamin D deficiency Surgical History Surgical History History of foot surgery Right foot fusion surgery 08/02/2018 Hx of colonoscopy no polyps Family History Family History Mother Hypertension Family history of osteoarthritis Family history of Parkinson's disease Carcinoma of colon Family history of arthritis Father Family history of kidney disease Social History Social History Social History: Al is . 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 Smoking status: Never smoker Second hand tobacco smoke exposure: No Alcohol intake: current Substance use: never Substance use type: does not use Lack of Transportation: No Lack of Food: Never True Current Housing: I Have Housing Concerned About Future Housing: No Difficulty Paying Gas/Electric Bills: No Difficulty Paying for Meds: No Currently Unemployed: No Education: Master's Degree or Higher Difficulty w/ Childcare or Family Care: No Living arrangements: with family Additional living arrangements comments: Occupation/Education: retired Gender identity (if verbalized by the patient): Male Spiritual care concerns: No Agree to blood products: Yes Meds Home Medications and Allergies Home Medications Medication Instructions Recorded Confirmed Type aspirin 81 mg tablet,delayed 81 mg PO DAILY 10/20/19 12/21/23 History release (Adult Low Dose Aspirin) cholecalciferol (vitamin D3) 25 1,000 unit PO DAILY 10/20/19 12/21/23 History mcg (1,000 unit) capsule omega-3s 350 qo-fpa-oxw-other 1 cap PO BID 04/26/21 12/21/23 History emvyo4b-zxjv oil 600 mg capsule (Fish Oil) melatonin 10 mg capsule 10 mg PO QHS 10/26/22 12/21/23 History cannabidiol 100 mg/mL oral solution 60 mg PO DAILY 05/15/23 12/21/23 History atorvastatin 10 mg tablet See Rx Instructions .Route 10/17/23 12/21/23 Rx .COMPLEX #90 tabs doxazosin 4 mg tablet 4 mg PO QAM 12/21/23 12/21/23 History lisinopril 10 mg tablet 10 mg PO HS 12/21/23 12/21/23 History Allergies Allergy/AdvReac Type Severity Reaction Status Date / Time No Known Allergies Allergy Verified 01/01/24 07:44 Vital Signs Vital Signs - 24 hr 01/01/24 07:40 Temperature 36.4 C Pulse Rate 85 Respiratory Rate 14 Blood Pressure 138/75 Pulse Oximetry 100 Oxygen Delivery Room Air Exam Const: General: cooperative, comfortable and no acute distress Chest: Chest palpation & inspection: normal inspection of the chest Resp: Effort & Inspection: normal respiratory effort Cardio: Rate: regular rate Rhythm: regular rhythm GI: Inspection: normal to inspection Assessment and Plan Assessment and plan (1) Elevated PSA: Code(s): R97.20 - Elevated prostate specific antigen [PSA] Status: Acute Assessment and Plan: proceed with uronav us and prostate biopsy
--- NOTE | 2024-01-01 08:29 | WPDHPUPDATE1 ---
History and Physical Update Update Date/Time: 01/01/24 08:29 History and Physical has been reviewed, including an updated exam of the patient. There are NO changes in the patient's condition. Risks, benefits, and alternatives have been discussed and questions answered. Patient agrees to proceed with procedure.
[2024-01-01] MEDS: ceFAZolin 3 GM/D5W 100 ML 100 ML IVPB (08:35)
--- NOTE | 2024-01-01 09:00 | W.PM.PROC2 ---
Procedure Note - Detailed Date of Procedure 01/01/24 Pre-op Diagnosis Elev PSA Post-op Diagnosis Same Procedure Performed Uronav us and prostate biopsy Surgeon William Haile MD Anesthesia General Description of Procedure Patient was taken to the operative suite correctly identified. Once anesthesia was obtained was placed lateral decubitus position. Transrectal ultrasound was then performed. The MRI image was fused to machine. Three cores were taken from the region of interest. Twelve standard cores were then taken. Patient tolerated procedure well without complications is taken recovery stable condition. He is instructed to call for path results in 1 week. This completes dictation. Please send a copy of dictation to my office Estimated Blood Loss 0 Drains No Packing No Pathology Yes Complications No immediate complications Condition Stable Disposition PACU
[2024-01-01 09:05] VITALS: BP 144/77; PULSE 67; RESP 10; TEMP 36.5; O2SAT 100
[2024-01-01 09:20] VITALS: BP 133/72; PULSE 61; RESP 13; O2SAT 100
[2024-01-01 09:35] VITALS: BP 141/68; PULSE 63; RESP 14; O2SAT 100
[2024-01-01 09:45] VITALS: BP 116/75; PULSE 63
[2024-01-01 10:00] VITALS: BP 123/72; PULSE 65
== END 2024-01-01 10:10 | disposition home or self-care (01) ==
PROVIDERS: PCP Family Medicine; Visit Provider Urology
PROC: (CPT 55700; principal; 2024-01-01 08:30)
DX: C61 Malignant neoplasm of prostate (principal); R93.89 Abnormal findings on diagnostic imaging of other specified body structures; I10 Essential (primary) hypertension; E78.5 Hyperlipidemia, unspecified; E55.9 Vitamin D deficiency, unspecified; K21.9 Gastro-esophageal reflux disease without esophagitis; G47.30 Sleep apnea, unspecified; E66.9 Obesity, unspecified; Z68.39 Body mass index [BMI] 39.0-39.9, adult; Z79.82 Long term (current) use of aspirin; Z98.890 Other specified postprocedural states; Z80.0 Family history of malignant neoplasm of digestive organs
CPT/HCPCS: 76872; 55700; G0416; J0690; J1100; J2405; J2704; J3010; J7120

== ENCOUNTER 2024-06-02 10:54 | Outpatient (CLI) | payer MEDICARE, SELFPAY ==
[2024-06-02 14:44] LABS: Basophils Absolute Auto 0.1 K/mm3 (0.0-0.1); Basophils Percent Auto 1.4 % (0.2-1.2); Eosinophils Absolute Auto 0.2 K/mm3 (0-0.3); Eosinophils Percent Auto 3.2 % (0-4.4); Hematocrit 46.4 % (42.0-52.0); Hemoglobin 15.4 g/dL (14.0-18.0); Immature Granulocyte Absolute 0.02 K/mm3 (0.00-0.031); Immature Granulocyte Percent A 0.4 % (0-0.5); Lymphocytes Absolute Auto 1.52 K/mm3 (0.9-3.2); Lymphocytes Percent Auto 27.3 % (18.3-44.2); Mean Corpuscular HGB Conc 33.2 g/dl (32-36); Mean Corpuscular Hemoglobin 30.3 pg (26-34); Mean Corpuscular Volume 91.2 fl (80-100); Mean Platelet Volume 10.6 fl (7.4-10.4); Monocytes Absolute Auto 0.6 K/mm3 (0.1-0.6); Neutrophils Absolute Auto 3.2 K/mm3 (1.3-6.7); Neutrophils Percent Auto 56.7 % (45.5-73.1); Platelet Count Result 246 k/mm3 (150-375); Red Blood Count 5.09 M/mm3 (4.6-6.20); White Blood Count 5.6 K/mm3 (4.5-10.0)
[2024-06-02 15:29] LABS: Vitamin D 25 Hydroxy 65.3 ng/mL
[2024-06-02 15:42] LABS: Thyroid Stimulating Hormone Reflex 0.983 uIU/mL (0.465-4.68)
[2024-06-02 17:53] LABS: Alanine Aminotransferase 20 U/L (6-50); Albumin Level 4.2 g/dL (3.5-5.1); Alkaline Phosphatase 93 U/L (38-126); Anion Gap 8 mmol/L (4-12); Aspartate Amino Transferase 53 U/L (17-59); Bilirubin,Total 0.7 mg/dL (0.2-1.3); Blood Urea Nitrogen 17 mg/dL (9-20); Calcium 9.4 mg/dL (8.4-10.2); Carbon Dioxide 26 mmol/L (22-30); Chloride 102 mmol/L (98-107); Cholesterol 129 mg/dL (0-200); Estimated Glomerular Filt Rate 59; Glucose 94 mg/dL (65-110); HDL Direct 32 mg/dL; Potassium 4.4 mmol/L (3.4-5.0); Sodium 136 mmol/L (137-145); Triglycerides 89 mg/dL (<150)
[2024-06-02 18:03] LABS: LDL Cholesterol Direct 70 mg/dL
== END 2024-06-02 10:55 | disposition home or self-care (01) ==
LOC: ANHGOSHLAB 10:55
PROVIDERS: PCP Family Medicine; Visit Provider Nurse Practitioner Family
DX: E78.5 Hyperlipidemia, unspecified (principal); I10 Essential (primary) hypertension; E55.9 Vitamin D deficiency, unspecified; G47.30 Sleep apnea, unspecified
CPT/HCPCS: 36415; 80053; 80061; 82306; 84443; 85025

== ENCOUNTER 2024-12-08 10:19 | Outpatient (CLI) | payer MEDICARE, SELFPAY ==
--- OUTSIDE RECORDS SUMMARY | 2024-12-08 13:20 | XMS_ITS | Clinical Summary ---
Author Organization [facility] Address [address] [place] [address] Care Team Providers Care Octave Board Racker Name Role Phone Trung Garber MD Primary Care Provider Allergies No known active allergies Medications aspirin 81 mg enteric coated tablet 5 Active atorvastatin (LIPITOR) 10 mg tablet Take 1 tablet (10 mg total) by mouth daily 1 Active cholecalciferol (VITAMIN D-3) 2000 unit capsule 5 Active guaiFENesin-dex tromethorphan ER (Mucinex DM) 600-30 mg tablet extended release 12 hr 1 Active ncqyh-nz-6-dha- ops-xgnqaqg-mkg (MegaRed [place]-3 Krill Oil) 549-88-95-50 mg capsule 5 Active lisinopriL (PRINIVIL,ZESTR [place]) 40 mg tablet 1 Active loratadine/pseu doephedrine (CLARITIN-D 12 HOUR ORAL) 1 Active lisinopriL (PRINIVIL,ZESTR IL) 30 mg tablet Take 10 mg by mouth daily 2 Active melatonin 10 mg tablet Active UNABLE TO FIND CBD 40mg sublingual Active doxazosin (CARDURA) 8 mg tablet Take 0.5 tablets (4 mg total) by mouth daily Active Active Problems Problem Noted Date Diagnosed Date SALVADOR (obstructive sleep apnea) 12/15/2020 Assessment & Plan (12/12/2023 9:48 AM PROMOTIONS ASSISTANT SALES MARKETING): Due to continued symptoms, the patient will continue CPAP at 11 cm water pressure. Denied need for supplies. DME [facility] Assessment & Plan (12/13/2022 11:07 AM PROMOTIONS ASSISTANT SALES MARKETING): Patient continue to use his CPAP at 11 cm water pressure while sleeping. His DME is [facility]. Assessment & Plan (12/14/2021 10:46 AM PROMOTIONS ASSISTANT SALES MARKETING): The patient will continue CPAP therapy at 11 cm water pressure to treat obstructive sleep apnea. Patient denied need for supplies DME company [facility]. Patient is benefitting from CPAP Assessment & Plan (12/15/2020 8:23 AM PROMOTIONS ASSISTANT SALES MARKETING): The patient continues to benefit from CPAP at 11 cm water pressure. He states that he will mail less the smart card to have a downloaded. I will order a new CPAP mask, head gear, hose and filters for the patient through [facility] in [place], [place]. He should follow-up here in 1 year Surgical History Surgery Date Site/Laterality Comments TOE SURGERY 07/22/2018 - 08/21/2018 Right big toe right foot Medical History Medical History Date Comments Arthritis 07/2018 Benign prostatic hyperplasia 10/2010 Hypertension 10/2013 Sleep apnea 02/2004 Family History Medical History Relation Name Comments Kidney failure Father Arthritis Mother Mirian Wiggins Cancer Mother Mirian Wiggins Heart disease Mother Mirian Wiggins Hypertension Mother Mirian Wiggins Relation Name Status Comments Father Mother Mirian Wiggins Social History Tobacco Use Types Packs/Day Years Used Date Smoking Tobacco: Never Smokeless Tobacco: Never Tobacco Cessation:Counseling Given: Not Answered Personal Safety Answer Date Recorded Getting School Help Needed Not on file 11/26 Sex and Gender Information Value Date Recorded Sex Assigned at Not on file Legal Sex Male 9:44 AM PROMOTIONS ASSISTANT SALES MARKETING Gender Identity Male 10/29/2020 6:22 AM PROMOTIONS ASSISTANT SAL[employer] MARKETING Sexual Orientation Not on file Obstetrics History Last Filed Vital Signs Vital Sign Reading Time Taken Comments Blood Pressure 114/68 12/12/2023 9:39 AM PROMOTIONS ASSISTANT SALES MARKETING Pulse 84 12/12/2023 9:39 AM PROMOTIONS ASSISTANT [employer] MARKETING Temperature 36.1 C (97 F) 12/12/2023 9:39 AM PROMOTIONS ASSISTANT SALES MARKETING Respiratory Rate 10 12/12/2023 9:39 AM PROMOTIONS ASSISTANT SALES MARKETING Oxygen Saturation 96% 12/12/2023 9:39 AM PROMOTIONS ASSISTANT SALES MARKETING Inhaled Oxygen Concentration - - Weight 128.6 kg (283 lb 9.6 oz) 12/12/2023 9:39 AM PROMOTIONS ASSISTANT [employer] MARKETING Height 180.3 cm (5' 11 ) 12/12/2023 9:39 AM PROMOTIONS ASSISTANT SAL[employer] MARKETING Body Mass Index 39.55 12/12/2023 9:39 AM PROMOTIONS ASSISTANT [employer] MARKETING Plan of Treatment Health Maintenance Due Date Last Done Comments Colon Cancer Screening-Colonoscopy 1949 Depression Screening 1949 Fall Risk Assessment 1949 Hepatitis C Screening 1949 Hepatitis B Screening 1967 Zoster Vaccine (1 of 2) 1999 Well Visit 65+ 2014 Pneumococcal vaccine 65+ (2 of 2 - PCV) 10/22/2017 10/22/2016, 10/22/2014 Influenza Vaccine (#1) 2024 , 10/30/2018, 07/27/2015, Additional history exists DTaP/Tdap/Td Vaccine (2 - Td or Tdap) 10/30/2028 10/30/2018 [place] [address] MEDICARE [facility] MEDICARE [place] [address] MEDICARE [facility] Address: [facility] [address] [place] [address] [facility] MEDICARE SUPPLEMENT INSURANCE Care Teams Octave Board Racker Relationship Specialty Start Date End Date Trung Garber MD PCP - General Family Practice 10/19/20
--- OUTSIDE RECORDS SUMMARY | 2024-12-08 13:20 | XMS_ITS | Referral Summary ---
Author Organization [facility]] at the [facility] Address [address] [place] [address] Care Team Providers Care Ready Mix Truck Driver Name Role Phone Trung Garber MD Primary Care Provider Allergies No known active allergies Medications aspirin 81 mg enteric coated tablet 5 Active atorvastatin (LIPITOR) 10 mg tablet Take 1 tablet (10 mg total) by mouth daily 1 Active cholecalciferol (VITAMIN D-3) 2000 unit capsule 5 Active guaiFENesin-dex tromethorphan ER (Mucinex DM) 600-30 mg tablet extended release 12 hr 1 Active rvngg-re-8-dha- ocj-uteihbw-owb (MegaRed [place]-3 Krill Oil) 416-89-80-50 mg capsule 5 Active lisinopriL (PRINIVIL,ZESTR [place]) [...] 12/15/2020 Assessment & Plan (12/12/2023 9:48 AM BREAD PANNER): Due to continued symptoms, the patient will continue CPAP at 11 cm water pressure. Denied need for supplies. DME [facility] Assessment & Plan (12/13/2022 11:07 AM BREAD PANNER): Patient continue to use his CPAP at 11 cm water pressure while sleeping. His DME is [facility]. Assessment & Plan (12/14/2021 10:46 AM BREAD PANNER): The patient will continue CPAP therapy at 11 cm water pressure to treat obstructive sleep apnea. Patient denied need for supplies DME company [facility]. Patient is benefitting from CPAP Assessment & Plan (12/15/2020 8:23 AM BREAD PANNER): The patient continues to benefit from CPAP at 11 cm water pressure. He states that he will mail less the smart card to have a downloaded. I will order a new CPAP mask, head gear, hose and filters for the patient through [facility] in [place], [place]. He should follow-up here in 1 year Social History Tobacco Use Types Packs/Day Years Used Date Smoking Tobacco: Never Smokeless Tobacco: Never Tobacco Cessation:Counseling Given: Not Answered Personal Safety Answer Date Recorded Getting School Help Needed Not on file 11/26 Sex and Gender Information Value Date Recorded Sex Assigned at Not on file Legal Sex Male 9:44 AM BREAD PANNER Gender Identity Male 10/29/2020 6:22 AM BREAD PANNER Sexual Orientation Not on file Last Filed Vital Signs Vital Sign Reading Time Taken Comments Blood Pressure 114/68 12/12/2023 9:39 AM BREAD PANNER Pulse 84 12/12/2023 9:39 AM BREAD PANNER Temperature 36.1 C (97 F) 12/12/2023 9:39 AM BREAD PANNER Respiratory Rate 10 12/12/2023 9:39 AM BREAD PANNER Oxygen Saturation 96% 12/12/2023 9:39 AM BREAD PANNER Inhaled Oxygen Concentration - - Weight 128.6 kg (283 lb 9.6 oz) 12/12/2023 9:39 AM BREAD PANNER Height 180.3 cm (5' 11 ) 12/12/2023 9:39 AM BREAD PANNER Body Mass Index 39.55 12/12/2023 9:39 AM BREAD PANNER Plan of Treatment Not on file Insurance MEDICARE [facility] MEDICARE SUPPLEMENT INSURANCE [place] [id number] MEDICARE [facility] MEDICARE SUPPLEMENT INSURANCE Care Teams Ready Mix Truck Driver Relationship Specialty Start Date End Date Trung Garber MD PCP - General Family Practice 10/19/20
--- OUTSIDE RECORDS SUMMARY | 2024-12-08 13:20 | XMS_ITS | Clinical Summary ---
Author Organization [facility] Address [facility] [place] [address] Care Team Providers Care Balancing Machine Operator Name Role Phone Trung Garber MD Primary Care Provider Allergies Active Allergy Reactions Criticality Noted Date Comments Seasonal Other (see comment) 12/05/2023 Sneezing, running nose. Medications atorvastatin (LIPITOR) 10 MG tablet Take 1 tablet (10 mg total) by mouth nightly at bedtime. Active lisinopril (PRINIVIL) 10 MG tablet Take 1 tablet (10 mg total) by mouth daily. Active doxazosin (CARDURA) 8 MG tablet Take 0.5 tablets (4 mg total) by mouth nightly at bedtime. Active loratadine (CLARITIN) 10 MG tablet Take 1 tablet (10 mg total) by mouth daily. Active vitamin D3, cholecalciferol , (VITAMIN D-3) 10 mcg tablet Take 1 tablet (10 mcg total) by mouth daily. Active aspirin 81 MG chewable tablet Chew 1 tablet (81 mg total) by mouth daily. Active CANNABIDIOL OR Take 60 mg by mouth daily. Active Active Problems No known active problems Social History Tobacco Use Types Packs/Day Years Used Date Smoking Tobacco: Never Smokeless Tobacco: Never Tobacco Cessation:Counseling Given: Not Answered Alcohol Use Standard Drinks/Week Comments Yes 0 (1 standard drink = 0.6 oz pur e alcohol) occ. Sex and Gender Information Value Date Recorded Sex Assigned at Male 12/10/2023 1:26 PM CHIP SILO TENDER Legal Sex Male 2:31 PM CHIP SILO TENDER Gender Identity Male 12/10/2023 1:26 PM CHIP SILO TENDER Sexual Orientation Choose not to disclose 2023 1:26 PM CHIP SILO TENDER Last Filed Vital Signs Vital Sign Reading Time Taken Comments Blood Pressure 148/72 01/17/2024 10:34 AM CDT Pulse 84 01/17/2024 10:34 AM CDT Temperature 36.6 C (97.9 F) 01/17/2024 10:34 AM CDT Respiratory Rate 20 01/17/2024 10:34 AM CDT Oxygen Saturation 98% 01/17/2024 10:34 AM CDT Inhaled Oxygen Concentration - - Weight 129.3 kg (285 lb) 01/17/2024 10:34 AM CDT Height 180.3 cm (5' 11 ) 01/17/2024 10:34 AM CDT Body Mass Index 39.75 01/17/2024 10:34 AM CDT Plan of Treatment Health Maintenance Due Date Last Done Comments Colorectal Cancer Screening Colonoscopy (10 Years) 1950 Hepatitis C 1968 Annual Medicare Wellness Visit 2014 Pneumococcal Vaccine: 65+ Years (2 of 2 - PCV) 10/22/2017 10/22/2016, 10/22/2014 COVID-19 Vaccine ( season) 2024 07/16/2023, 07/13/2022, 07/28/2021, Additional history exists Influenza Adult (#1) 2024 07/09/2020, 10/30/2018, 07/27/2015, Additional history exists DTaP, Tdap and Td Vaccines (2 - Td or Tdap) 10/30/2028 10/30/2018 RSV Immunization or 60+ Years Completed 07/03/2023 Zoster Vaccines Completed 07/04/2023, 12/21/2022 Meningococcal B Vaccine Aged Out No l onger eligible based on patient's age to complete this topic Meningococcal Vaccine Aged Out No paola vladimir eligible based on patient's age to complete this topic RSV Immunizations Under 20 Months Aged Out No longer eligible based on patient's age to complete this topic Medical Devices Implanted Type Area Bag Checker Device Identifier Shelf Expiration Date Model / Serial / Lot 1-Piece Iol With Tecnis Simplicity Delivery System Implanted:Qty: 1 on 12/17/2023 by Ronal Downey MD at [facility] Left: Eye 01/20/2026 / [id number] / [id number] Tecnis 1-Piece Iol Implanted:Qty: 1 on 01/14/2024 by Ronal Downey MD at [facility] Right: Eye JAS & JAS [id number] 06/01/2026 [id number] / [id number] / Insurance MEDICARE [facility] Care Teams Balancing Machine Operator Relationship Specialty Start Date End Date Trung Garber MD [address] [facility] [address] [place] [address] PCP - General FAMILY PRACTICE 12/17/23
[2024-12-08 13:52] LABS: Basophils Absolute Auto 0.1 K/mm3 (0.0-0.1); Basophils Percent Auto 1.4 % (0.2-1.2); Eosinophils Absolute Auto 0.2 K/mm3 (0-0.3); Eosinophils Percent Auto 3.2 % (0-4.4); Hematocrit 47.4 % (42.0-52.0); Hemoglobin 15.6 g/dL (14.0-18.0); Immature Granulocyte Absolute 0.04 K/mm3 (0.00-0.031); Immature Granulocyte Percent A 0.6 % (0-0.5); Lymphocytes Absolute Auto 1.69 K/mm3 (0.9-3.2); Lymphocytes Percent Auto 27.2 % (18.3-44.2); Mean Corpuscular HGB Conc 32.9 g/dl (32-36); Mean Corpuscular Hemoglobin 30.2 pg (26-34); Mean Corpuscular Volume 91.9 fl (80-100); Mean Platelet Volume 10.1 fl (7.4-10.4); Monocytes Absolute Auto 0.6 K/mm3 (0.1-0.6); Neutrophils Absolute Auto 3.6 K/mm3 (1.3-6.7); Neutrophils Percent Auto 57.6 % (45.5-73.1); Platelet Count Result 270 k/mm3 (150-375); Red Blood Count 5.16 M/mm3 (4.6-6.20); Red Cell Distribution Width 12.9 % (11.5-14.5); White Blood Count 6.2 K/mm3 (4.5-10.0)
[2024-12-08 14:50] LABS: Alanine Aminotransferase 25 U/L (6-50); Albumin Level 4.1 g/dL (3.5-5.1); Alkaline Phosphatase 101 U/L (38-126); Anion Gap 8 mmol/L (4-12); Aspartate Amino Transferase 36 U/L (17-59); Bilirubin,Total 0.7 mg/dL (0.2-1.3); Blood Urea Nitrogen 17 mg/dL (9-20); Calcium 9.2 mg/dL (8.4-10.2); Carbon Dioxide 27 mmol/L (22-30); Chloride 103 mmol/L (98-107); Cholesterol 124 mg/dL (0-200); Estimated Glomerular Filt Rate 60; Glucose 89 mg/dL (65-110); HDL Direct 37 mg/dL; Potassium 4.9 mmol/L (3.4-5.0); Sodium 138 mmol/L (137-145); Triglycerides 76 mg/dL (<150)
[2024-12-08 15:01] LABS: LDL Cholesterol Direct 71 mg/dL
== END 2024-12-08 10:20 | disposition home or self-care (01) ==
LOC: ANHGOSHLAB 10:20
PROVIDERS: PCP Family Medicine; Visit Provider Nurse Practitioner Family
DX: E78.5 Hyperlipidemia, unspecified (principal); I10 Essential (primary) hypertension
CPT/HCPCS: 36415; 80053; 80061; 85025

== ENCOUNTER 2025-03-23 08:59 | Outpatient (CLI) | payer MEDICARE, SELFPAY ==
--- NOTE | 2025-03-23 09:09 | ECHO_ITS ---
Patient Info Name: Al Wiggins Age: 74 years : 1950 Gender: Male Ht: 71 in Wt: 280 lbs BSA: 2.57 m2 HR: 68 bpm BP: 146 / 77 mmHg Technical Quality: Fair Exam Date: 03/23/2025 9:13 AM Patient Status: O Admit Date: 03/23/2025 Exam Type: CA echo doppler color flow Complete two-dimensional, color flow and Doppler transthoracic echocardiogram is performed. Streetcar Repairer: Ilda Rosales Attending Provider: Marta Caraballo Summary 1. Complete two-dimensional, color flow and Doppler transthoracic echocardiogram is performed. 2. Left ventricular chamber dimension is normal. 3. Left ventricular systolic function is normal, estimated at 65-70. 4. There is mild concentric increased left ventricular wall thickness. 5. The left ventricular diastolic function is grade I diastolic dysfunction. 6. E/e' 8 is minimally elevated. 7. There is mild aortic valve sclerosis. 8. No pulmonary hypertension, estimated pulmonary arterial systolic pressure is 33 mmHg. Left Ventricle E/e' 8 is minimally elevated. Left ventricular chamber dimension is normal. Left ventricular systolic function is normal, estimated at 65-70. There is mild concentric increased left ventricular wall thickness. The left ventricular diastolic function is grade I diastolic dysfunction. Right Ventricle Right ventricular chamber dimension is normal. Right ventricular systolic function is normal and with normal TAPSE 2.2 cm. Left Atria Left atrial chamber dimension is normal. Right Atria Right atrial chamber dimension is normal. Aortic Valve The aortic valve is trileaflet. There is mild aortic valve sclerosis. There is no aortic valve stenosis. There is no aortic valve regurgitation. Pulmonic Valve There is no pulmonic regurgitation. Mitral Valve There is no mitral valve stenosis. There is no mitral valve regurgitation. Tricuspid Valve There is no tricuspid valve regurgitation. No pulmonary hypertension, estimated pulmonary arterial systolic pressure is 33 mmHg. Pericardium/Pleural There is no pericardial effusion. Inferior Vena Cava Normal inferior vena cava with >50% collapse upon inspiration consistent with normal right atrial pressure, 5 mmHg. Aorta The aortic root size at the sinus of Valsalva is normal. Left Ventricular Outflow Tract Name Value Normal LVOT 2D LVOT Diameter 2.0 cm LVOT Doppler LVOT Peak Velocity 110 cm/s LVOT Peak Gradient 5 mmHg LVOT Mean Gradient 3 mmHg LVOT VTI 27 cm LVOT VTI/AV VTI Ratio 1.0 LVOT Stroke Volume 87 ml LVOT CO 16.0 l/min LVOT CI 6.2 l/min/m2 Pulmonic Valve Name Value Normal PV Doppler PV Peak Velocity 91 cm/s PV Peak Gradient 3 mmHg Mitral Valve Name Value Normal MV Diastolic Function MV E Peak Velocity 71 cm/s MV A Peak Velocity 62 cm/s MV E/A 1.1 MV Decel Time (PW) 333 ms MV Annular TDI MV E/e' (Septal) 11.2 MV E/e' (Lateral) 7.1 MV E/e' (Average) 9.1 Tricuspid Valve Name Value Normal TV Regurgitation Doppler TR Peak Velocity 265 cm/s TR Peak Gradient 22 mmHg Estimated PAP/RSVP RA Pressure 5 mmHg <=5 PA Systolic Pressure 33 mmHg <36 RV Systolic Pressure 33 mmHg <36 TV Annular TDI TV Lateral Yadira s' Velocity 13.2 cm/s >=9.5 Aorta Name Value Normal Ascending Aorta Ao Root Diameter (MM) 3.8 cm Ao Root Diam Index (MM) 1.5 cm/m2 Aortic Valve Name Value Normal AV Doppler AV Peak Velocity 127 cm/s AV Peak Gradient 6 mmHg AV Mean Gradient 4 mmHg AV VTI 29 cm AV Area (Cont Eq VTI) 3.0 cm2 >=3.0 AV Area (Cont Eq Valentin) 2.8 cm2 AV DI (Valentin) 0.87 AV Regurgitation 2D LVOT Area 3.2 cm2 Ventricles Name Value Normal LV Dimensions 2D/MM IVS Diastolic Thickness (2D) 1.2 cm 0.6-1.0 LVID Diastole (2D) 4.4 cm 4.2-5.8 LVIW Diastolic Thickness (2D) 1.1 cm 0.6-1.0 LVID Systole (2D) 3.2 cm 2.5-4.0 LVOT Diameter 2.0 cm LV Mass (2D Cubed) 180.16 g 88.00-224.00 LV Mass Index (2D Cubed) 70 g/m2 49-115 Relative Wall Thickness (2D) 0.52 <=0.42 LV Fractional Shortening/Ejection Fraction 2D/MM LV Fractional Shortening (2D) 28 % 25-43 LV EF (2D Teichholz) 55 % LV Diastolic Volume (4C MOD) 112 ml LV EF (4C MOD) 74 % LV Diastolic Volume (2C MOD) 135 ml LV EF (2C MOD) 64 % LV Diastolic Volume (BP MOD) 131 ml 62-150 LV Diastolic Volume Index (BP MOD) 51 ml/m2 34-74 LV Systolic Volume (BP MOD) 38 ml 21-61 LV Systolic Volume Index (BP MOD) 15 ml/m2 11-31 LV EF (BP MOD) 71 % 52-72 LV Diastolic Length (4C) 8.0 cm LV Systolic Length (4C) 7.0 cm LV Stroke Volume (4C MOD) 83 ml RV Dimensions 2D/MM RVID Diastole (2D) 4.7 cm 2.1-3.5 Atria Name Value Normal LA Dimensions LA Volume (4C A-L) 50 ml LA Volume (BP A-L) 50 ml RA Dimensions RA Systolic Major [place] Length (4C) 5.6 cm 2.1-2.7 RA Area (4C) 19.9 cm2 <=18.0 Report Signatures
--- OUTSIDE RECORDS SUMMARY | 2025-03-23 09:18 | XMS_ITS | Clinical Summary ---
Author Organization [facility] Address [address] [place] [address] Care Team Providers Care Manager Company Name Role Phone Trung Garber MD Primary Care Provider Allergies No known active allergies Medications aspirin 81 mg enteric coated tablet 5 Active atorvastatin (LIPITOR) 10 mg tablet Take 1 tablet (10 mg total) by mouth daily 1 Active cholecalciferol (VITAMIN D-3) 2000 unit capsule 5 Active guaiFENesin-dex tromethorphan ER (Mucinex DM) 600-30 mg tablet extended release 12 hr 1 Active nzgds-sy-5-dha- yrb-iigyupj-hqd (MegaRed [place]-3 Krill Oil) 080-63-33-50 mg capsule 5 Active lisinopriL (PRINIVIL,ZESTR [place]) 40 mg tablet 1 Active loratadine/pseu doephedrine (CLARITIN-D 12 HOUR ORAL) 1 Active lisinopriL (PRINIVIL,ZESTR [place]) 30 mg tablet Take 10 mg by mouth daily 2 Active melatonin 10 mg tablet Active UNABLE TO FIND CBD 40mg sublingual Active doxazosin (CARDURA) 8 mg tablet Take 0.5 tablets (4 mg total) by mouth daily Active loratadine (CLARITIN) 10 mg tablet Take 1 tablet (10 mg total) by mouth daily Active Active Problems Problem Noted Date Diagnosed Date SALVADOR (obstructive sleep apnea) 12/15/2020 Assessment & Plan (12/19/2024 10:33 AM HOTEL CONCIERGE): Patient continue to wear CPAP at 11 cm water pressure while sleeping. His DME is [facility]. Assessment & Plan (12/12/2023 9:48 AM HOTEL CONCIERGE): Due to continued symptoms, the patient will continue CPAP at 11 cm water pressure. Denied need for supplies. DME [facility] Assessment & Plan (12/13/2022 11:07 AM HOTEL CONCIERGE): Patient continue to use his CPAP at 11 cm water pressure while sleeping. His DME is [facility]. Assessment & Plan (12/14/2021 10:46 AM HOTEL CONCIERGE): The patient will continue CPAP therapy at 11 cm water pressure to treat obstructive sleep apnea. Patient denied need for supplies DME company [facility]. Patient is benefitting from CPAP Assessment & Plan (12/15/2020 8:23 AM HOTEL CONCIERGE): The patient continues to benefit from CPAP at 11 cm water pressure. He states that he will mail less the smart card to have a downloaded. I will order a new CPAP mask, head gear, hose and filters for the patient through [facility] in [place], [place]. He should follow-up here in 1 [...] Tobacco: Never Tobacco Cessation:Counseling Given: Not Answered Sex and Gender Information Value Date Recorded Sex Assigned at Not on file Legal Sex Male 9:44 AM HOTEL CONCIERGE Gender Identity Male 10/29/2020 6:22 AM HOTEL CONCIERGE Sexual Orientation Not on file Obstetrics History Last Filed Vital Signs Vital Sign Reading Time Taken Comments Blood Pressure 128/81 12/19/2024 10:09 AM HOTEL CONCIERGE Pulse 81 12/19/2024 10:09 AM HOTEL CONCIERGE Temperature 36.7 C (98 F) 12/19/2024 10:09 AM HOTEL CONCIERGE Respiratory Rate 20 12/19/2024 10:0 9 AM HOTEL CONCIERGE Oxygen Saturation 97% 12/19/2024 10: 09 AM HOTEL CONCIERGE Inhaled Oxygen Concentration - - Weight 132.6 kg (292 lb 6.4 oz) 025 10:09 AM HOTEL CONCIERGE Height 180.3 cm (5' 11) 12/12/2023 9:39 AM HOTEL CONCIERGE Body Mass Index 40.78 12/12/2023 9:39 AM HOTEL CONCIERGE Plan of Treatment Health Maintenance Due Date Last Done Comments Colon Cancer Screening-Colonoscopy 1950 Depression Screening 1950 Fall Risk Assessment 1950 Hepatitis C Screening 1950 Hepatitis B Screening 1967 Zoster Vaccine (1 of 2) 1999 Well Visit 65+ 2014 Pneumococcal vaccine 65+ (2 of 2 - PCV) 10/22/2017 10/22/2016, 10/22/2014 Influenza Vaccine (Season Ended) 2025 07/09/2020, 10/30/2018, 07/27/2015, Additional history exists DTaP/Tdap/Td Vaccine (2 - Td or Tdap) 10/30/2028 10/30/2018 [place] [address] MEDICARE [facility] MEDICARE SUPPLEMENT INSURANCE MEDICARE [facility] MEDICARE SUPPLEMENT INSURANCE Care Teams Manager Company Relationship Specialty Start Date End Date Trung Garber MD PCP - General Family Practice 10/19/20
--- OUTSIDE RECORDS SUMMARY | 2025-03-23 09:18 | XMS_ITS | Referral Summary ---
Author Organization [facility] Address [address] [place] [address] Care Team Providers Care Support Engineer Name Role Phone Trung Garber MD Primary Care Provider Allergies No known active allergies Medications aspirin 81 mg enteric coated tablet 5 Active atorvastatin (LIPITOR) 10 mg tablet Take 1 tablet (10 mg total) by mouth daily 1 Active cholecalciferol (VITAMIN D-3) 2000 unit capsule 5 Active guaiFENesin-dex tromethorphan ER (Mucinex DM) 600-30 mg tablet extended release 12 hr 1 Active awfhj-ce-3-dha- kxm-cbbwsrs-egq (MegaRed [place]-3 Krill Oil) 886-26-78-50 mg capsule 5 Active lisinopriL (PRINIVIL,ZESTR [place]) [...] 12/15/2020 Assessment & Plan (12/19/2024 10:33 AM BAG PATCHER): Patient continue to wear CPAP at 11 cm water pressure while sleeping. His DME is [facility]. Assessment & Plan (12/12/2023 9:48 AM BAG PATCHER): Due to continued symptoms, the patient will continue CPAP at 11 cm water pressure. Denied need for supplies. DME [facility] Assessment & Plan (12/13/2022 11:07 AM BAG PATCHER): Patient continue to use his CPAP at 11 cm water pressure while sleeping. His DME is [facility]. Assessment & Plan (12/14/2021 10:46 AM BAG PATCHER): The patient will continue CPAP therapy at 11 cm water pressure to treat obstructive sleep apnea. Patient denied need for supplies DME company [facility]. Patient is benefitting from CPAP Assessment & Plan (12/15/2020 8:23 AM BAG PATCHER): The patient continues to benefit from CPAP at 11 cm water pressure. He states that he will mail less the smart card to have a downloaded. I will order a new CPAP mask, head gear, hose and filters for the patient through [facility] in [place], [place]. He should follow-up here in 1 year Social History Tobacco Use Types Packs/Day Years Used Date Smoking Tobacco: Never Smokeless Tobacco: Never Tobacco Cessation:Counseling Given: Not Answered Sex and Gender Information Value Date Recorded Sex Assigned at Not on file Legal Sex Male 9:44 AM BAG PATCHER Gender Identity Male 10/29/2020 6:22 AM BAG PATCHER Sexual Orientation Not on file Last Filed Vital Signs Vital Sign Reading Time Taken Comments Blood Pressure 128/81 12/19/2024 10:09 AM BAG PATCHER Pulse 81 12/19/2024 10:09 AM BAG PATCHER Temperature 36.7 C (98 F) 12/19/2024 10:09 AM BAG PATCHER Respiratory Rate 20 12/19/2024 10:0 9 AM BAG PATCHER Oxygen Saturation 97% 12/19/2024 10: 09 AM BAG PATCHER Inhaled Oxygen Concentration - - Weight 132.6 kg (292 lb 6.4 oz) 02/28/2 025 10:09 AM BAG PATCHER Height 180.3 cm (5' 11) 12/12/2023 9:39 AM BAG PATCHER Body Mass Index 40.78 12/12/2023 9:39 AM BAG PATCHER Plan of Treatment Not on file Insurance MEDICARE [facility] MEDICARE SUPPLEMENT INSURANCE [place] [id number] MEDICARE [facility] MEDICARE SUPPLEMENT INSURANCE Care Teams Support Engineer Relationship Specialty Start Date End Date Trung Garber MD PCP - General Family Practice 10/19/20
== END 2025-03-23 09:00 | disposition home or self-care (01) ==
LOC: ANHCARD 09:01
PROVIDERS: PCP Family Medicine; Visit Provider Nurse Practitioner Family
DX: R93.1 Abnormal findings on diagnostic imaging of heart and coronary circulation (principal); R06.09 Other forms of dyspnea
CPT/HCPCS: 93306

== ENCOUNTER 2025-06-09 09:44 | Outpatient (CLI) | payer MEDICARE, SELFPAY ==
--- OUTSIDE RECORDS SUMMARY | 2025-06-09 10:04 | XMS_ITS | Clinical Summary ---
Author Organization [facility] Address [address] [place] [address] Care Team Providers Care Nurse Wound Name Role Phone Trung Garber MD Primary Care Provider Allergies No known active allergies Medications aspirin 81 mg enteric coated tablet 5 Active atorvastatin (LIPITOR) 10 mg tablet Take 1 tablet (10 mg total) by mouth daily 1 Active cholecalciferol (VITAMIN D-3) 2000 unit capsule 5 Active guaiFENesin-dex tromethorphan ER (Mucinex DM) 600-30 mg tablet extended release 12 hr 1 Active qkmnx-sj-9-dha- ifu-kqyeenc-hvj (MegaRed [place]-3 Krill Oil) 040-66-37-50 mg capsule 5 Active lisinopriL (PRINIVIL,ZESTR [place]) [...] 12/15/2020 Assessment & Plan (12/19/2024 10:33 AM TIE MILL OPERATOR): Patient continue to wear CPAP at 11 cm water pressure while sleeping. His DME is [facility]. Assessment & Plan (12/12/2023 9:48 AM TIE MILL OPERATOR): Due to continued symptoms, the patient will continue CPAP at 11 cm water pressure. Denied need for supplies. DME [facility] Assessment & Plan (12/13/2022 11:07 AM TIE MILL OPERATOR): Patient continue to use his CPAP at 11 cm water pressure while sleeping. His DME is [facility]. Assessment & Plan (12/14/2021 10:46 AM TIE MILL OPERATOR): The patient will continue CPAP therapy at 11 cm water pressure to treat obstructive sleep apnea. Patient denied need for supplies DME company [facility]. Patient is benefitting from CPAP Assessment & Plan (12/15/2020 8:23 AM TIE MILL OPERATOR): The patient continues to benefit from CPAP at 11 cm water pressure. He states that he will mail less the smart card to have a downloaded. I will order a new CPAP mask, head gear, hose and filters for the patient through [facility] in [place], [place]. He should follow-up here in 1 [...] on file Legal Sex Male 9:44 AM TIE MILL OPERATOR Gender Identity Male 10/29/2020 6:22 AM TIE MILL OPERATOR Sexual Orientation Not on file Obstetrics History Last Filed Vital Signs Vital Sign Reading Time Taken Comments Blood Pressure 128/81 12/19/2024 10:09 AM TIE MILL OPERATOR Pulse 81 12/19/2024 10:09 AM TIE MILL OPERATOR Temperature 36.7 C (98 F) 12/19/2024 10:09 AM TIE MILL OPERATOR Respiratory Rate 20 12/19/2024 10:0 9 AM TIE MILL OPERATOR Oxygen Saturation 97% 12/19/2024 10: 09 AM TIE MILL OPERATOR Inhaled Oxygen Concentration - - Weight 132.6 kg (292 lb 6.4 oz) 025 10:09 AM TIE MILL OPERATOR Height 180.3 cm (5' 11) 12/12/2023 9:39 AM TIE MILL OPERATOR Body Mass Index 40.78 12/12/2023 9:39 AM TIE MILL OPERATOR Plan of Treatment Health Maintenance Due Date Last Done Comments Depression Screening 1950 Fall Risk Assessment 1950 Hepatitis C Screening 1950 Hepatitis B Screening 1967 Zoster Vaccine (1 of 2) 1999 Well Visit 65+ 2014 Pneumococcal vaccine 65+ (2 of 2 - PCV) 10/22/2017 10/22/2016, 10/22/2014 Influenza Vaccine (#1) 2025 0, 10/30/2018, 07/27/2015, Additional history exists DTaP/Tdap/Td Vaccine (2 - Td or Tdap) 10/30/2028 10/30/2018 [place] [address] [place] [address] [facility] MEDICARE SUPPLEMENT INSURANCE MEDICARE [facility] MEDICARE SUPPLEMENT INSURANCE Care Teams Nurse Wound Relationship Specialty Start Date End Date Trung aGrber MD PCP - General Family Practice 10/19/20
--- OUTSIDE RECORDS SUMMARY | 2025-06-09 10:04 | XMS_ITS | Clinical Summary ---
Author Organization [facility] Address [facility] [place] [address] Care Team Providers Care Conference Center Manager Name Role Phone Trung Garber MD Primary [...] Sex Assigned at Male 12/10/2023 1:26 PM SWITCHGEAR REPAIRER Legal Sex Male 2:31 PM SWITCHGEAR REPAIRER Gender Identity Male 12/10/2023 1:26 PM SWITCHGEAR REPAIRER Sexual Orientation Choose not to disclose 2023 1:26 PM SWITCHGEAR REPAIRER Last Filed Vital Signs Vital Sign Reading [...] 10:34 AM CDT Height 180.3 cm (5' 11) 01/17/2024 10:34 AM CDT Body Mass Index 39.75 01/17/2024 10:34 AM CDT Plan of Treatment Health Maintenance Due Date Last Done Comments Hepatitis C 1968 Annual Medicare Wellness Visit 2014 Pneumococcal Vaccine: 50+ Years (2 of 2 - PCV) 10/22/2017 10/22/2016, 10/22/2014 COVID-19 Vaccine ( season) 2024 07/16/2023, 07/13/2022, 07/28/2021, Additional history exists DTaP, Tdap and Td [...] this topic Medical Devices Implanted Type Area Blower Insulator Device Identifier Shelf Expiration Date Model / Serial / Lot 1-Piece Iol With Tecnis Simplicity Delivery System Implanted:Qty: 1 on 12/17/2023 by Ronal Downey MD at [facility] Left: Eye 01/20/2026 / [id number] / [id number] Tecnis 1-Piece Iol Implanted:Qty: 1 on 01/14/2024 by Ronal Downey MD at [facility] Right: Eye [employer]AS [id number] 06/01/2026 [id number] / [id number] / Insurance MEDICARE Member Subscriber Plan / Payer (Ef fective 2020-Present) Name:Al Wiggins Relation to Subscriber:Self Name:Al Wiggins Payer ID:Not on file Group ID:Not on file Type:1.618 Technology Address: [facility] [address] [place] [address] [facility] Member Subscriber Plan / Payer (Ef fective 2016-Present) Name:Al Wiggins Relation to Subscriber:Self Name:Al Wiggins Payer ID:Not on file Group ID:Not on file Type:1.618 Technology Address: [address] [place] [address] Care Teams Conference Center Manager Relationship Specialty Start Date End Date Trung Garber MD [address] [facility] [address] [place] [address] PCP - General FAMILY PRACTICE 12/17/23
[2025-06-09 12:57] LABS: Hematocrit 45.7 % (42.0-52.0); Hemoglobin 15.0 g/dL (14.0-18.0); Immature Granulocyte Percent A 0.8 % (0-0.5); Lymphocytes Absolute Auto 1.70 K/mm3 (0.9-3.2); Mean Corpuscular HGB Conc 32.8 g/dl (32-36); Mean Corpuscular Hemoglobin 29.9 pg (26-34); Mean Corpuscular Volume 91.2 fl (80-100); Nucleated Red Blood Cells Absolute Auto 0.000 K/mm3 (0.0-0.012); Nucleated Red Blood Cells Perc 0.0 % (0.0-0.2); Platelet Count Result 276 k/mm3 (150-375); Red Blood Count 5.01 M/mm3 (4.6-6.20); White Blood Count 6.6 K/mm3 (4.5-10.0)
[2025-06-09 13:29] LABS: Alanine Aminotransferase 19 U/L (6-50); Albumin Level 4.1 g/dL (3.5-5.1); Alkaline Phosphatase 89 U/L (38-126); Anion Gap 4 mmol/L (4-12); Aspartate Amino Transferase 54 U/L (17-59); Bilirubin,Total 0.5 mg/dL (0.2-1.3); Blood Urea Nitrogen 20 mg/dL (9-20); Calcium 9.3 mg/dL (8.4-10.2); Carbon Dioxide 28 mmol/L (22-30); Chloride 104 mmol/L (98-107); Cholesterol 127 mg/dL (0-200); Estimated Glomerular Filt Rate 56; Glucose 102 mg/dL (65-110); HDL Direct 29 mg/dL; Potassium 4.9 mmol/L (3.4-5.0); Sodium 136 mmol/L (137-145); Total Protein 7.0 g/dL (6.3-8.2); Triglycerides 99 mg/dL (<150)
[2025-06-09 14:19] LABS: Hemoglobin A1C 5.9 % (<5.7)
[2025-06-09 17:00] LABS: Thyroid Stimulating Hormone Reflex 1.230 uIU/mL (0.465-4.68)
== END 2025-06-09 09:45 | disposition home or self-care (01) ==
LOC: ANHGOSHLAB 09:45
PROVIDERS: PCP Nurse Practitioner Family; Visit Provider Nurse Practitioner Family
DX: E78.5 Hyperlipidemia, unspecified (principal); I10 Essential (primary) hypertension; R73.01 Impaired fasting glucose; E55.9 Vitamin D deficiency, unspecified
CPT/HCPCS: 36415; 80053; 80061; 82306; 83036; 84443; 85025